=== PATIENT | female | born 1985 | race Caucasian/White ===

== ENCOUNTER 2016-10-15 10:24 | Outpatient (CLI) | payer OTHER ==
[2016-10-15 10:42] LABS: BASOPHILS % 0.4 (0.0-1.5); EOSINOPHILS % 1.2 % (0.0-6.8); LYMPHOCYTES # 1.7 # k/uL (0.6-4.0); MEAN CORPUSCULAR HEMOGLOBIN 31.2 pg (28.0-34.0); MONOCYTES # 0.2 # k/uL (0.0-0.9); MONOCYTES % 3.3 % (0.0-11.0); NEUTROPHILS # 5.5 # k/uL (1.4-7.7)
[2016-10-15 11:04] LABS: eGFR (African) > 60; eGFR (Non-African) > 60
--- NOTE | 2016-10-15 19:00 | Diagnostic Imaging Report ---
LUIS SCHWARTZ [facility] [address] [facility].[address] [address] Report Submission Date: Oct 15, 2016 12:19:32 PM CDT Patient Study Name: TIFFANY HALEY Date: Oct 15, 2016 11:09:53 AM CDT Modality Type: CT\SR Gender: F Description: CT ABD & PELVIS W/ CON : 83 Institution: [facility] Physician: LUIS SCHWARTZ CT of the abdomen and pelvis with contrast Clinical history: Right-sided abdominal pain for 4-5 days. Contrast administered: 94 ml of Omnipaque. Technique: CT of the abdomen and pelvis is performed with intravenous infusion of contrast. Sagittal and coronal reconstructions are performed by the technologist. Findings: There is minimal dependent atelectasis in the lung bases. The liver and spleen demonstrate normal attenuation without focal defect. The gallbladder is surgically absent. There is no pancreatic or adrenal abnormality. The kidneys demonstrate symmetric enhancement. There is no retroperitoneal mass or significant adenopathy. Postoperative changes are evident in the lumbosacral region with prior fusion from L4-S1. There is resulting metal artifact. The appendix is visualized and is within normal limits. The bladder is unremarkable. The uterus and adnexal structures are within normal limits. Mild wall thickening is seen in the region of the gastric antrum that may just represent physiologic contraction. There is no significant stranding in the adjacent fat, but the possibility of gastritis cannot be excluded. Impression: 1. Postoperative changes. 2. Gastric wall thickening in the antrum that is likely physiologic. 3. Negative appendix. Electronically signed on Oct 15, 2016 12:19:32 PM CDT by: Addy JENSEN
== END 2016-10-15 10:25 ==
LOC: RAD 10:24
PROVIDERS: ATTEND Physician Assistant
DX: R10.31 Right lower quadrant pain (principal)
CPT/HCPCS: 36415; 74177; 80053; 85025; Q9966

== ENCOUNTER 2017-04-22 11:29 | Outpatient (CLI) | payer OTHER ==
--- NOTE | 2017-04-22 14:52 | Diagnostic Imaging Report ---
LUIS SCHWARTZ [facility] [address] [facility].[address] [address] Report Submission Date: Apr 22, 2017 11:43:49 AM CDT Patient Study Name: TIFFANY HALEY Date: Apr 22, 2017 11:27:51 AM CDT Modality Type: CR Gender: F Description: CHEST : 83 Institution: [facility] Physician: LUIS SCHWARTZ Examination: PA and lateral chest. History: Evaluate lung xiao. Comparison exam: None provided Findings: PA lateral chest demonstrate a normal cardiac and mediastinal silhouette. No focal infiltrate. No effusion. No blunting of the costophrenic margins. Osseous structures are appropriate for age. Impression: No acute pulmonary process. Electronically signed on Apr 22, 2017 11:43:49 AM CDT by: Willi JENSEN
== END 2017-04-22 11:30 ==
LOC: RAD 11:29
PROVIDERS: ATTEND Physician Assistant
DX: R05 Cough (principal)
CPT/HCPCS: 71020

== ENCOUNTER 2018-07-12 13:30 | Outpatient (CLI) | payer OTHER ==
--- NOTE | 2018-07-12 14:06 | Diagnostic Imaging Report ---
LILY GUSMAN [facility] [address] [facility].[address] [address] Report Submission Date: Jul 12, 2018 1:59:49 PM BIOMEDICAL PHOTOGRAPHER Patient Study Name: TIFFANY HALEY Date: Jul 12, 2018 1:30:34 PM BIOMEDICAL PHOTOGRAPHER Modality Type: DX Gender: F Description: CHEST : 83 Institution: [facility] Physician: LILY GUSMAN PA AND LATERAL CHEST HISTORY: Right-sided chest pain and cough COMPARISON: None PA and Lateral Chest dated July 12, 2018 demonstrates a normal cardiomediastinal silhouette. Pulmonary vascularity is normal. Lungs are clear. IMPRESSION: NO ACTIVE DISEASE. Electronically signed on Jul 12, 2018 1:59:49 PM BIOMEDICAL PHOTOGRAPHER by: Alba JENSEN
== END 2018-07-12 13:35 | disposition home or self-care (01) ==
LOC: RAD 13:30
PROVIDERS: ATTEND Family Medicine
DX: R05 Cough (principal); R07.9 Chest pain, unspecified
CPT/HCPCS: 71046

== ENCOUNTER 2019-05-04 22:26 | Emergency (ER) | payer OTHER ==
[2019-05-04] MEDS ORDERED: CEFDINIR 300 MG CAPSULE PO ONE (22:57)
== END 2019-05-04 23:03 ==
LOC: ED 22:26
DX: S90.562A Insect bite (nonvenomous), left ankle, initial encounter (principal); W57.XXXA Bitten or stung by nonvenomous insect and other nonvenomous arthropods, initial encounter
CPT/HCPCS: 99282